=== PATIENT | male | born 1950 | race Hispanic/Latino ===

== ENCOUNTER → 2018-06-15 | Outpatient (CLI) | payer MEDICARE ==
[~2018-06-15] VITALS: Ht 180.3 cm; Wt 87.5 kg
[~2018-06-15] MED LIST: REGADENOSON 0.4 MG/5 ML PF SYG IVP SCH
== END | disposition home or self-care (01) ==
LOC: SHCH 07:42
PROVIDERS: ATTEND Internal Medicine Cardiovascular Disease
DX: R07.9 Chest pain, unspecified (principal)
CPT/HCPCS: 78452; 93017; 96374; A9500 ×2; J2785

== ENCOUNTER → 2019-11-28 | Outpatient (CLI) | payer MEDICARE | END | disposition home or self-care (01) | LOC: SHCH 08:26 | PROVIDERS: ATTEND Internal Medicine Cardiovascular Disease | DX: I08.3 Combined rheumatic disorders of mitral, aortic and tricuspid valves (principal); I10 Essential (primary) hypertension | CPT/HCPCS: 93306; 93356 ==

== ENCOUNTER → 2020-09-18 | Outpatient (CLI) | payer MEDICARE, OTHER ==
[~2020-09-18] MED LIST changes: +ALBUMIN (HUMAN) 25% 300 ML IV SCH; -REGADENOSON 0.4 MG/5 ML PF SYG IVP SCH
[2020-09-18 08:52] LABS: EOSINOPHILS % (AUTO) 1.2 % (0.0-8.0); HEMATOCRIT 42.9 % (42-54); LYMPHOCYTES % (AUTO) 11.5 % (21.0-51.0); MEAN CORPUSCULAR HEMOGLOBIN 29.5 pg (27.0-33.0); MEAN CORPUSCULAR VOLUME 95.1 fL (79-99); MONOCYTES % (AUTO) 13.9 % (3.0-13.0); NEUTROPHILS % (AUTO) 71.2 % (40.0-77.0); PLATELET COUNT (AUTO) 257 K/uL (130-400); RED BLOOD CELL COUNT(AUTO) 4.51 MIL/uL (4.50-6.20); RED CELL DISTRIBUTION WIDTH 16.4 % (11.0-15.5); WHITE BLOOD COUNT (AUTO) 4.1 K/uL (4.8-10.8)
[2020-09-18 09:16] LABS: BILIRUBIN,TOTAL 0.5 mg/dL (0.2-1.0); CREATININE 7.8 mg/dL (0.5-1.5); POTASSIUM 4.8 mmol/L (3.5-5.1); TOTAL PROTEIN, SERUM 7.5 g/dL (6.0-8.3)
[2020-09-18 09:48] LABS: INR 1.14 (0.85-1.15); PROTHROMBIN TIME 11.7 SEC (9.6-11.6)
[2020-09-18 13:29] LABS: ALBUMIN,BODY FLUID 2.4 g/dL
[2020-09-18 15:30] LABS: APPEARANCE BODY FLUID CLEAR (CLEAR); COLOR,BODY FLUID YELLOW (LT YELLOW); SPECIMENTYPE,BODY FLUID ASCITES; TOTAL VOLUME,BODY FLUID 14000 mL
[2020-09-18 15:31] LABS: BODY FLUID RBC 25 /cu. mm.; BODY FLUID WBC 43 /cu. mm.
[2020-09-18 16:11] LABS: BF LYMPHOCYTE 21 %; BF MESOTHELIAL 65 %
== END ==
LOC: RAH 08:32
PROVIDERS: ATTEND Internal Medicine Gastroenterology
DX: R18.8 Other ascites (principal)
CPT/HCPCS: 36415; 49083; 80053; 82042; 84157; 85025; 85610; 87071; 87205; 89051; A4215; P9046; 96365

== ENCOUNTER → 2020-09-23 | Outpatient (CLI) | payer MEDICARE | END | disposition home or self-care (01) | LOC: SHCH 15:10 | PROVIDERS: ATTEND Internal Medicine Cardiovascular Disease | DX: I50.22 Chronic systolic (congestive) heart failure (principal) | CPT/HCPCS: 93306; 93356 ==

== ENCOUNTER → 2020-10-05 | Outpatient (CLI) | payer MEDICARE ==
[2020-10-05 10:34] LABS: HEMATOCRIT 36.5 % (42-54); MEAN CORPUSCULAR HEMOGLOBIN 29.9 pg (27.0-33.0); MEAN CORPUSCULAR HGB CONC 31.2 g/dL (32.0-36.0); MEAN CORPUSCULAR VOLUME 95.8 fL (79-99); PLATELET COUNT (AUTO) 255 K/uL (130-400); RED BLOOD CELL COUNT(AUTO) 3.81 MIL/uL (4.50-6.20); RED CELL DISTRIBUTION WIDTH 15.9 % (11.0-15.5); WHITE BLOOD COUNT (AUTO) 5.6 K/uL (4.8-10.8)
[2020-10-05 10:52] LABS: ALBUMIN 2.3 g/dL (3.5-5.0); BILIRUBIN,TOTAL 0.4 mg/dL (0.2-1.0); TOTAL PROTEIN, SERUM 6.2 g/dL (6.0-8.3)
[2020-10-05 10:56] LABS: CREATININE 8.5 mg/dL (0.5-1.5); POTASSIUM 6.3 mmol/L (3.5-5.1)
[2020-10-05 11:02] LABS: INR 1.05 (0.85-1.15); PROTHROMBIN TIME 11.4 SEC (9.6-11.6)
[2020-10-05 11:15] LABS: BASOPHILS % (AUTO) 1.4 % (0.0-5.0); EOSINOPHILS % (AUTO) 2.2 % (0.0-8.0); LYMPHOCYTES % (AUTO) 8.4 % (21.0-51.0); NEUTROPHILS % (AUTO) 76.6 % (40.0-77.0)
[2020-10-05 13:15] LABS: APPEARANCE BODY FLUID CLEAR (CLEAR); COLOR,BODY FLUID YELLOW (LT YELLOW); SPECIMENTYPE,BODY FLUID ASCITES; TOTAL VOLUME,BODY FLUID 10100 mL
[2020-10-05 13:16] LABS: BODY FLUID RBC 124 /cu. mm.; BODY FLUID WBC 253 /cu. mm.
[2020-10-05 13:24] LABS: BF LYMPHOCYTE 17 %; BF MESOTHELIAL 76 %; BF MONOCYTE 7 %
[2020-10-05 14:03] LABS: ALBUMIN,BODY FLUID 1.7 g/dL
== END | disposition home or self-care (01) ==
LOC: RAH 10:05
PROVIDERS: ATTEND Internal Medicine Gastroenterology
DX: R18.8 Other ascites (principal); K74.69 Other cirrhosis of liver; E11.22 Type 2 diabetes mellitus with diabetic chronic kidney disease; I12.0 Hypertensive chronic kidney disease with stage 5 chronic kidney disease or end stage renal disease; N18.6 End stage renal disease; D64.9 Anemia, unspecified; M19.90 Unspecified osteoarthritis, unspecified site; K59.00 Constipation, unspecified; Z99.2 Dependence on renal dialysis; Z86.010 Personal history of colon polyps; Z79.01 Long term (current) use of anticoagulants; Z98.52 Vasectomy status; Z79.899 Other long term (current) drug therapy; Z98.890 Other specified postprocedural states
CPT/HCPCS: 36415; 49083; 80053; 82042; 84157; 85025; 85610; 87071; 87205; 89051; A4215; P9046; 96365

== ENCOUNTER → 2020-11-02 | Outpatient (CLI) | payer MEDICARE ==
[~2020-11-02] MED LIST changes: +ALBUMIN (HUMAN) 25% 100 ML IV SCH; +ALBUMIN (HUMAN) 25% 200 ML IV SCH; -ALBUMIN (HUMAN) 25% 300 ML IV SCH
[2020-11-02 13:17] LABS: APPEARANCE BODY FLUID CLEAR (CLEAR); BODY FLUID WBC 107 /cu. mm.; COLOR,BODY FLUID YELLOW (LT YELLOW); SPECIMENTYPE,BODY FLUID ASCITES; TOTAL VOLUME,BODY FLUID 11000 mL
[2020-11-02 13:18] LABS: BODY FLUID RBC 2675 /cu. mm.
[2020-11-02 13:26] LABS: BF BASOPHIL 1 %; BF LYMPHOCYTE 41 %; BF MESOTHELIAL 43 %; BF MONOCYTE 13 %
== END | disposition home or self-care (01) ==
LOC: RAH 10:35
PROVIDERS: ATTEND Internal Medicine Gastroenterology
DX: R18.8 Other ascites (principal); K74.69 Other cirrhosis of liver; E11.22 Type 2 diabetes mellitus with diabetic chronic kidney disease; I12.9 Hypertensive chronic kidney disease with stage 1 through stage 4 chronic kidney disease, or unspecified chronic kidney disease; N18.6 End stage renal disease; D64.9 Anemia, unspecified; M19.90 Unspecified osteoarthritis, unspecified site; K59.00 Constipation, unspecified; Z99.2 Dependence on renal dialysis; Z79.01 Long term (current) use of anticoagulants; Z86.010 Personal history of colon polyps; Z98.52 Vasectomy status; Z79.899 Other long term (current) drug therapy; Z98.890 Other specified postprocedural states
CPT/HCPCS: 49083; 87071; 87205; 89051; A4215; P9046 ×2; 96365

== ENCOUNTER → 2020-11-27 | Outpatient (CLI) | payer MEDICARE ==
[2020-11-27 09:08] LABS: HEMATOCRIT 28.5 % (42-54); MEAN CORPUSCULAR HEMOGLOBIN 30.1 pg (27.0-33.0); MEAN CORPUSCULAR HGB CONC 30.5 g/dL (32.0-36.0); MEAN CORPUSCULAR VOLUME 98.6 fL (79-99); PLATELET COUNT (AUTO) 368 K/uL (130-400); RED BLOOD CELL COUNT(AUTO) 2.89 MIL/uL (4.50-6.20); RED CELL DISTRIBUTION WIDTH 14.9 % (11.0-15.5); WHITE BLOOD COUNT (AUTO) 6.1 K/uL (4.8-10.8)
[2020-11-27 09:22] LABS: INR 1.08 (0.85-1.15); PROTHROMBIN TIME 11.7 SEC (9.6-11.6)
[2020-11-27 09:33] LABS: ALBUMIN 2.3 g/dL (3.5-5.0); BILIRUBIN,TOTAL 0.3 mg/dL (0.2-1.0); CREATININE 5.4 mg/dL (0.5-1.5); TOTAL PROTEIN, SERUM 6.7 g/dL (6.0-8.3)
[2020-11-27 09:35] LABS: EOSINOPHILS % (MANUAL) 6 % (1-6); LYMPHOCYTES % (MANUAL) 9 % (22-44); MONOCYTES % (MANUAL) 9 % (2-9); SEGMENTED NEUTROPHILS % 76 % (40-70)
[2020-11-27 09:39] LABS: MAN.DIFF COMMENT-IMPRESSION MANUAL DIFFERENTIAL; PLATELET MORPHOLOGY COMMENT ADEQUATE
[2020-11-27] MEDS: ALBUMIN (HUMAN) 25% 200 ML IV SCH ×2 (11:37→14:15)
[2020-11-27 13:12] LABS: APPEARANCE BODY FLUID CLEAR (CLEAR); BODY FLUID WBC 165 /cu. mm.; COLOR,BODY FLUID DARK YELLOW (LT YELLOW); SPECIMENTYPE,BODY FLUID ASCITES; TOTAL VOLUME,BODY FLUID 3400 mL
[2020-11-27 13:13] LABS: BODY FLUID RBC 5200 /cu. mm.
[2020-11-27 13:22] LABS: BF EOSINOPHIL 6 %; BF LYMPHOCYTE 42 %; BF MESOTHELIAL 44 %
== END ==
LOC: RAH 07:33
PROVIDERS: ATTEND Internal Medicine Gastroenterology
DX: R18.8 Other ascites (principal)
CPT/HCPCS: 36415; 49083; 80053; 85025; 85610; 87071; 87205; 89051; A4215; P9046

== ENCOUNTER → 2020-12-18 | Outpatient (CLI) | payer MEDICARE ==
[~2020-12-18] MED LIST changes: -ALBUMIN (HUMAN) 25% 100 ML IV SCH
[2020-12-18 13:37] LABS: APPEARANCE BODY FLUID CLOUDY (CLEAR); BODY FLUID WBC 324 /cu. mm.; COLOR,BODY FLUID DARK YELLOW (LT YELLOW); SPECIMENTYPE,BODY FLUID ASCITES; TOTAL VOLUME,BODY FLUID 3600 mL
[2020-12-18 13:38] LABS: BODY FLUID RBC 2600 /cu. mm.
[2020-12-18 14:03] LABS: BF LYMPHOCYTE 19 %; BF MESOTHELIAL 74 %; BF MONOCYTE 7 %
== END | disposition home or self-care (01) ==
LOC: RAH 07:58
PROVIDERS: ATTEND Internal Medicine Gastroenterology
DX: R18.8 Other ascites (principal); K74.69 Other cirrhosis of liver; E11.22 Type 2 diabetes mellitus with diabetic chronic kidney disease; I12.0 Hypertensive chronic kidney disease with stage 5 chronic kidney disease or end stage renal disease; N18.6 End stage renal disease; M19.90 Unspecified osteoarthritis, unspecified site; D64.9 Anemia, unspecified; Z99.2 Dependence on renal dialysis; Z98.52 Vasectomy status; Z86.010 Personal history of colon polyps; Z79.01 Long term (current) use of anticoagulants
CPT/HCPCS: 49083; 87071; 87205; 89051; C1729; P9046

== ENCOUNTER → 2021-01-08 | Outpatient (CLI) | payer MEDICARE ==
[2021-01-08 09:43] LABS: BASOPHILS % (AUTO) 0.6 % (0.0-5.0); EOSINOPHILS % (AUTO) 1.2 % (0.0-8.0); HEMATOCRIT 22.6 % (42-54); LYMPHOCYTES % (AUTO) 9.3 % (21.0-51.0); MEAN CORPUSCULAR HEMOGLOBIN 30.2 pg (27.0-33.0); MEAN CORPUSCULAR VOLUME 97.4 fL (79-99); MONOCYTES % (AUTO) 12.8 % (3.0-13.0); NEUTROPHILS % (AUTO) 75.6 % (40.0-77.0); PLATELET COUNT (AUTO) 336 K/uL (130-400); RED BLOOD CELL COUNT(AUTO) 2.32 MIL/uL (4.50-6.20); RED CELL DISTRIBUTION WIDTH 13.2 % (11.0-15.5); WHITE BLOOD COUNT (AUTO) 6.6 K/uL (4.8-10.8)
[2021-01-08 09:54] LABS: INR 1.16 (0.85-1.15); PROTHROMBIN TIME 12.5 SEC (9.6-11.6)
[2021-01-08 09:56] LABS: ALBUMIN 2.3 g/dL (3.5-5.0); BILIRUBIN,TOTAL 0.3 mg/dL (0.2-1.0); POTASSIUM 4.7 mmol/L (3.5-5.1); TOTAL PROTEIN, SERUM 6.6 g/dL (6.0-8.3)
== END | disposition home or self-care (01) ==
LOC: RAH 09:13
PROVIDERS: ATTEND Internal Medicine Gastroenterology
DX: R18.8 Other ascites (principal); E78.5 Hyperlipidemia, unspecified; K74.69 Other cirrhosis of liver; K22.70 Barrett's esophagus without dysplasia; R11.2 Nausea with vomiting, unspecified; R19.4 Change in bowel habit; K57.30 Diverticulosis of large intestine without perforation or abscess without bleeding; D64.9 Anemia, unspecified; N18.6 End stage renal disease; E11.9 Type 2 diabetes mellitus without complications; Z86.010 Personal history of colon polyps; Z79.899 Other long term (current) drug therapy
CPT/HCPCS: 36415; 76705; 80053; 85025; 85610; 85730

== ENCOUNTER → 2021-02-17 | Outpatient (CLI) | payer MEDICARE ==
[~2021-02-17] MED LIST changes: +CLOP75TA32 PO; +CYAN25002 SL; +FERR-72 PO; +FOLI0.8T3 PO; +METO50TA18 PO; +METO5TAB2 PO; +MULT-1204 PO; +PANT40TA55 PO; +SIMV-43 PO; +SODI10PO2 PO
[2021-02-17 08:43] LABS: EOSINOPHILS % (AUTO) 1.4 % (0.0-8.0); HEMATOCRIT 25.8 % (42-54); LYMPHOCYTES % (AUTO) 6.6 % (21.0-51.0); MEAN CORPUSCULAR HEMOGLOBIN 27.1 pg (27.0-33.0); MEAN CORPUSCULAR HGB CONC 30.2 g/dL (32.0-36.0); MEAN CORPUSCULAR VOLUME 89.6 fL (79-99); NEUTROPHILS % (AUTO) 79.4 % (40.0-77.0); PLATELET COUNT (AUTO) 446 K/uL (130-400); RED BLOOD CELL COUNT(AUTO) 2.88 MIL/uL (4.50-6.20); RED CELL DISTRIBUTION WIDTH 14.8 % (11.0-15.5); WHITE BLOOD COUNT (AUTO) 7.1 K/uL (4.8-10.8)
[2021-02-17 08:54] LABS: INR 1.21 (0.85-1.15)
[2021-02-17 08:57] LABS: ALBUMIN 2.4 g/dL (3.5-5.0); BILIRUBIN,TOTAL 0.3 mg/dL (0.2-1.0); CREATININE 6.3 mg/dL (0.5-1.5); POTASSIUM 4.6 mmol/L (3.5-5.1); TOTAL PROTEIN, SERUM 7.1 g/dL (6.0-8.3)
[2021-02-17 14:29] LABS: APPEARANCE BODY FLUID TURBID (CLEAR); BODY FLUID WBC 313 /cu. mm.; COLOR,BODY FLUID RED (LT YELLOW); SPECIMENTYPE,BODY FLUID ASCITES; TOTAL VOLUME,BODY FLUID 900 mL
[2021-02-17 14:30] LABS: BODY FLUID RBC 44000 /cu. mm.
[2021-02-17 14:33] LABS: BF LYMPHOCYTE 5 %; BF MESOTHELIAL 3 %; BF MONOCYTE 7 %
== END ==
LOC: RAH 08:08
PROVIDERS: ATTEND Internal Medicine Gastroenterology
DX: R18.8 Other ascites (principal); E11.22 Type 2 diabetes mellitus with diabetic chronic kidney disease; I12.9 Hypertensive chronic kidney disease with stage 1 through stage 4 chronic kidney disease, or unspecified chronic kidney disease; N18.6 End stage renal disease; Z98.52 Vasectomy status
CPT/HCPCS: 36415; 49083; 80053; 85025; 85610; 87071; 87205; 88112; 88305; 89051; C1729; P9046

== ENCOUNTER 2021-02-19 16:54 | Inpatient (IN) | payer MEDICARE ==
[~2021-02-19] VITALS: Ht 180.3 cm; Wt 74.2 kg
[2021-02-19 17:37] LABS: EOSINOPHILS % (AUTO) 1.8 % (0.0-8.0); HEMATOCRIT 25.9 % (42-54); LYMPHOCYTES % (AUTO) 8.3 % (21.0-51.0); MEAN CORPUSCULAR HEMOGLOBIN 26.4 pg (27.0-33.0); MEAN CORPUSCULAR HGB CONC 30.1 g/dL (32.0-36.0); MEAN CORPUSCULAR VOLUME 87.8 fL (79-99); MONOCYTES % (AUTO) 11.4 % (3.0-13.0); NEUTROPHILS % (AUTO) 76.8 % (40.0-77.0); PLATELET COUNT (AUTO) 444 K/uL (130-400); RED BLOOD CELL COUNT(AUTO) 2.95 MIL/uL (4.50-6.20); RED CELL DISTRIBUTION WIDTH 14.8 % (11.0-15.5); WHITE BLOOD COUNT (AUTO) 7.4 K/uL (4.8-10.8)
[2021-02-19 17:51] LABS: CREATININE 7.1 mg/dL (0.5-1.5); POTASSIUM 4.8 mmol/L (3.5-5.1)
[2021-02-19 17:54] LABS: INR 1.15 (0.85-1.15); PROTHROMBIN TIME 12.4 SEC (9.6-11.6)
[2021-02-19 17:55] LABS: ALBUMIN 2.5 g/dL (3.5-5.0); BILIRUBIN,TOTAL 0.3 mg/dL (0.2-1.0); PARTIAL THROMBOPLASTIN TIME 34.7 SEC (26.3-35.5); TOTAL PROTEIN, SERUM 7.3 g/dL (6.0-8.3)
[2021-02-19] MEDS ORDERED: GUAIFENESIN-DM 200/20 MG 10 ML PO PRN (19:00)
[2021-02-19] MEDS ORDERED: MORPHINE 2 MG SYG IV PRN (19:00)
[2021-02-19] MEDS ORDERED: ACETAMINOPHEN 325 MG TAB PO PRN ×2 (19:00)
[2021-02-19] MEDS ORDERED: MAG/ALUM/SIMETH 30 ML UDCUP PO PRN (19:00)
[2021-02-19] MEDS ORDERED: NITROGLYCERIN 0.4 MG SL TAB SL PRN (19:00)
[2021-02-19] MEDS ORDERED: ZOLPIDEM TARTRATE 5 MG TAB PO PRN (19:00)
[2021-02-19] MEDS ORDERED: LACTULOSE 20 GM/30 ML UDCUP PO PRN (19:00)
[2021-02-19] MEDS ORDERED: ONDANSETRON 4MG INJ IV PRN (19:00)
[2021-02-19] MEDS ORDERED: MULT-1204 PO (21:51)
[2021-02-19] MEDS ORDERED: FERR-72 PO (21:51)
[2021-02-19] MEDS ORDERED: SIMV-43 PO (21:51)
[2021-02-19] MEDS ORDERED: FOLI0.8T3 PO (21:51)
[2021-02-19] MEDS ORDERED: METO50TA18 PO (21:51)
[2021-02-19] MEDS ORDERED: CYAN25002 SL (21:51)
[2021-02-19] MEDS ORDERED: SODI10PO2 PO (21:51)
[2021-02-19] MEDS ORDERED: PANT40TA55 PO (21:51)
[2021-02-19] MEDS ORDERED: METO5TAB2 PO (21:51)
[2021-02-19] MEDS ORDERED: CLOP75TA32 PO (21:51)
[2021-02-20] VITALS (17 sets, daily range): BP systolic 149–168; BP diastolic 56–75
[2021-02-20] MEDS ORDERED: LEVOFLOXACIN 500 MG/D5W 100 ML 100 ML IV SCH (05:00)
[2021-02-20] MEDS ORDERED: METRONIDAZOLE 500MG/100ML BAG 100 ML ONE (05:07)
[2021-02-20] MEDS ORDERED: LEVOFLOXACIN 500 MG/D5W 100 ML 100 ML ONE (05:07)
[2021-02-20] MEDS: CYANOCOBALAMIN (VITAMIN B-12) 1,000 MCG TABLET PO SCH (09:03)
[2021-02-20] MEDS: METOPROLOL TARTRATE 50 MG TAB PO SCH (09:03)
[2021-02-20] MEDS: ENOXAPARIN SODIUM 30 MG/0.3 ML SQ SCH (09:03)
[2021-02-20] MEDS: FAMOTIDINE 20MG VIAL IV SCH (09:03)
[2021-02-20] MEDS: FERROUS SULFATE 325 MG TABLET.DR PO SCH (09:03)
[2021-02-20 10:19] LABS: HEMATOCRIT 24.1 % (42-54); MEAN CORPUSCULAR HEMOGLOBIN 26.4 pg (27.0-33.0); MEAN CORPUSCULAR HGB CONC 30.3 g/dL (32.0-36.0); PLATELET COUNT (AUTO) 421 K/uL (130-400); RED BLOOD CELL COUNT(AUTO) 2.77 MIL/uL (4.50-6.20)
[2021-02-20 10:57] LABS: ALBUMIN 2.2 g/dL (3.5-5.0); BILIRUBIN,TOTAL 0.4 mg/dL (0.2-1.0); CREATININE 7.3 mg/dL (0.5-1.5); POTASSIUM 5.5 mmol/L (3.5-5.1); TOTAL PROTEIN, SERUM 6.5 g/dL (6.0-8.3)
[2021-02-20 11:44] LABS: BASOPHILS % (MANUAL) 1 % (0-2); LYMPHOCYTES % (MANUAL) 4 % (22-44); MONOCYTES % (MANUAL) 5 % (2-9); SEGMENTED NEUTROPHILS % 90 % (40-70)
[2021-02-20 11:45] LABS: MAN.DIFF COMMENT-IMPRESSION MANUAL DIFFERENTIAL; PLATELET MORPHOLOGY COMMENT MARKED INCREASE
[2021-02-20] MEDS ORDERED: VANCOMYCIN PROTOCOL PER PHARMACY IV SCH (13:00)
[2021-02-20] MEDS ORDERED: VANCOMYCIN 1G VIAL IVPB ONE (13:00)
[2021-02-20] MEDS ORDERED: ZOSYN 3.375GM+NS 50ML 3.38 GM in 0.9%NACL 50ML 50 ML IV SCH (13:00)
[2021-02-20] MEDS ORDERED: COMPOUND IV REFRIGERATED 1 EACH IVSOLN MISC PRN (13:30)
[2021-02-20] MEDS ORDERED: METRONIDAZOLE 500MG/100ML BAG 100 ML IVPB SCH (14:00)
[2021-02-20] MEDS ORDERED: VANCOMYCIN 1.5GM/NS 250ML IV ONE ×2 (14:00)
[2021-02-20] MEDS: ZOSYN 3.375GM +NS 50ML IV SCH (16:42)
[2021-02-20] MEDS: 0.9%NACL 50ML 50 ML IV SCH (16:42)
[2021-02-20] MEDS ORDERED: SIMVASTATIN 20 MG TABLET ONE (19:01)
[2021-02-20] MEDS: SIMVASTATIN 20 MG TABLET PO SCH (19:25)
[2021-02-20] MEDS: FLUCONAZOLE 400 MG/NS 200 ML 200 ML IV SCH (20:54)
[2021-02-21 03:28] VITALS: BP 161/74
[2021-02-21] MEDS: ZOSYN 3.375GM +NS 50ML IV SCH ×2 (04:12→15:54)
[2021-02-21] MEDS: 0.9%NACL 50ML 50 ML IV SCH ×2 (04:12→16:00)
[2021-02-21 05:40] LABS: HEMATOCRIT 26.4 % (42-54); MEAN CORPUSCULAR HEMOGLOBIN 26.4 pg (27.0-33.0); MEAN CORPUSCULAR HGB CONC 29.9 g/dL (32.0-36.0); MEAN CORPUSCULAR VOLUME 88.3 fL (79-99); RED BLOOD CELL COUNT(AUTO) 2.99 MIL/uL (4.50-6.20); RED CELL DISTRIBUTION WIDTH 15.1 % (11.0-15.5); WHITE BLOOD COUNT (AUTO) 7.5 K/uL (4.8-10.8)
[2021-02-21 05:49] LABS: ALBUMIN 2.4 g/dL (3.5-5.0); BILIRUBIN,TOTAL 0.3 mg/dL (0.2-1.0); CREATININE 6.2 mg/dL (0.5-1.5); POTASSIUM 4.8 mmol/L (3.5-5.1)
[2021-02-21 06:00] LABS: INR 1.18 (0.85-1.15); PROTHROMBIN TIME 12.7 SEC (9.6-11.6)
[2021-02-21 06:02] LABS: PARTIAL THROMBOPLASTIN TIME 36.9 SEC (26.3-35.5)
[2021-02-21 08:00] VITALS: BP 124/51
[2021-02-21] MEDS: METOPROLOL TARTRATE 50 MG TAB PO SCH (09:48)
[2021-02-21] MEDS: FERROUS SULFATE 325 MG TABLET.DR PO SCH (09:48)
[2021-02-21] MEDS: FAMOTIDINE 20MG VIAL IV SCH (09:48)
[2021-02-21] MEDS: CYANOCOBALAMIN (VITAMIN B-12) 1,000 MCG TABLET PO SCH (09:48)
[2021-02-21] MEDS: ENOXAPARIN SODIUM 30 MG/0.3 ML SQ SCH (09:50)
[2021-02-21 12:00] VITALS: BP 119/56
[2021-02-21] MEDS: 0.9% NACL 250ML 250 ML IV SCH (14:00)
[2021-02-21] MEDS: ALBUMIN (HUMAN) 25% 200 ML IV SCH (15:00)
[2021-02-21 16:00] VITALS: BP 145/56
[2021-02-21 19:09] LABS: HEPATITIS Bs ANTIGEN SCREEN P Negative (Negative)
[2021-02-21] MEDS: SIMVASTATIN 20 MG TABLET PO SCH (19:14)
[2021-02-21 23:51] VITALS: BP 151/44
[2021-02-22] VITALS (13 sets, daily range): BP systolic 146–172; BP diastolic 63–86
[2021-02-22] MEDS: 0.9%NACL 50ML 50 ML IV SCH ×2 (03:51→16:02)
[2021-02-22] MEDS: ZOSYN 3.375GM +NS 50ML IV SCH ×2 (03:51→16:02)
[2021-02-22 04:07] LABS: HEMATOCRIT 25.1 % (42-54); MEAN CORPUSCULAR HEMOGLOBIN 26.8 pg (27.0-33.0); MEAN CORPUSCULAR HGB CONC 30.7 g/dL (32.0-36.0); MEAN CORPUSCULAR VOLUME 87.5 fL (79-99); RED BLOOD CELL COUNT(AUTO) 2.87 MIL/uL (4.50-6.20); RED CELL DISTRIBUTION WIDTH 14.9 % (11.0-15.5); WHITE BLOOD COUNT (AUTO) 6.3 K/uL (4.8-10.8)
[2021-02-22 04:20] LABS: INR 1.15 (0.85-1.15); PROTHROMBIN TIME 12.4 SEC (9.6-11.6)
[2021-02-22 04:21] LABS: PARTIAL THROMBOPLASTIN TIME 34.8 SEC (26.3-35.5)
[2021-02-22 04:25] LABS: CREATININE 7.8 mg/dL (0.5-1.5); POTASSIUM 5.2 mmol/L (3.5-5.1)
[2021-02-22] MEDS ORDERED: LEVOFLOXACIN 250 MG/D5W 50ML 50 ML IVPB SCH (06:00)
[2021-02-22] MEDS: ENOXAPARIN SODIUM 30 MG/0.3 ML SQ SCH (08:57)
[2021-02-22] MEDS: NA ZIRCON CYCLOSIL(LOKELMA 10GM) PO SCH (09:50)
[2021-02-22] MEDS: FAMOTIDINE 20MG VIAL IV SCH (09:50)
[2021-02-22] MEDS: ALBUMIN (HUMAN) 25% 100 ML IV SCH ×2 (13:00→13:43)
[2021-02-22] MEDS: FERROUS SULFATE 325 MG TABLET.DR PO SCH (13:26)
[2021-02-22] MEDS: METOPROLOL TARTRATE 50 MG TAB PO SCH (13:26)
[2021-02-22] MEDS: CYANOCOBALAMIN (VITAMIN B-12) 1,000 MCG TABLET PO SCH (13:26)
[2021-02-22] MEDS: ALBUMIN (HUMAN) 25% 200 ML IV SCH (14:00)
[2021-02-22 15:46] LABS: ALBUMIN,BODY FLUID 1.9 g/dL
[2021-02-22 16:57] LABS: SPECIMENTYPE,BODY FLUID ASCITES
[2021-02-22 16:58] LABS: APPEARANCE BODY FLUID BLOODY (CLEAR); BODY FLUID WBC 54 /cu. mm.; COLOR,BODY FLUID RED (LT YELLOW); TOTAL VOLUME,BODY FLUID 950 mL
[2021-02-22 16:59] LABS: BODY FLUID RBC 111400 /cu. mm.
[2021-02-22 17:04] LABS: BF LYMPHOCYTE 3 %
[2021-02-22] MEDS: FLUCONAZOLE 400 MG/NS 200 ML 200 ML IV SCH (21:43)
[2021-02-22] MEDS: SIMVASTATIN 20 MG TABLET PO SCH (21:43)
[2021-02-23] VITALS (20 sets, daily range): BP systolic 130–172; BP diastolic 39–80
[2021-02-23] MEDS: ZOSYN 3.375GM +NS 50ML IV SCH ×2 (03:24→16:30)
[2021-02-23] MEDS: 0.9%NACL 50ML 50 ML IV SCH ×2 (03:24→16:31)
[2021-02-23 06:56] LABS: MEAN CORPUSCULAR HEMOGLOBIN 26.9 pg (27.0-33.0); MEAN CORPUSCULAR HGB CONC 30.8 g/dL (32.0-36.0); MEAN CORPUSCULAR VOLUME 87.4 fL (79-99); RED BLOOD CELL COUNT(AUTO) 2.86 MIL/uL (4.50-6.20); RED CELL DISTRIBUTION WIDTH 14.9 % (11.0-15.5); WHITE BLOOD COUNT (AUTO) 6.9 K/uL (4.8-10.8)
[2021-02-23 07:04] LABS: POTASSIUM 5.2 mmol/L (3.5-5.1)
[2021-02-23] MEDS: 0.9%NACL 1000ML 1,000 ML IV PRN (09:56)
[2021-02-23] MEDS: EPOETIN ALFA-EPBX (ESRD) 10,000 UNIT/ML VIAL SQ SCH (13:05)
[2021-02-23] MEDS: FAMOTIDINE 20MG VIAL IV SCH (13:08)
[2021-02-23] MEDS: CYANOCOBALAMIN (VITAMIN B-12) 1,000 MCG TABLET PO SCH (13:09)
[2021-02-23] MEDS: FERROUS SULFATE 325 MG TABLET.DR PO SCH (13:09)
[2021-02-23] MEDS: ENOXAPARIN SODIUM 30 MG/0.3 ML SQ SCH (13:13)
[2021-02-23] MEDS: METOPROLOL TARTRATE 50 MG TAB PO SCH (13:15)
[2021-02-23] MEDS: NA ZIRCON CYCLOSIL(LOKELMA 10GM) PO SCH (13:30)
[2021-02-23] MEDS ORDERED: VANCOMYCIN KIT 1 GM/250 ML IV.KIT IV SCH (14:00)
[2021-02-23] MEDS: SIMVASTATIN 20 MG TABLET PO SCH (20:56)
[2021-02-24 03:41] VITALS: BP 147/68
[2021-02-24] MEDS: 0.9%NACL 50ML 50 ML IV SCH ×2 (03:43→17:59)
[2021-02-24] MEDS: ZOSYN 3.375GM +NS 50ML IV SCH ×2 (03:43→16:46)
[2021-02-24 05:01] LABS: HEMATOCRIT 26.7 % (42-54); MEAN CORPUSCULAR HEMOGLOBIN 26.8 pg (27.0-33.0); MEAN CORPUSCULAR HGB CONC 30.7 g/dL (32.0-36.0); MEAN CORPUSCULAR VOLUME 87.3 fL (79-99); RED BLOOD CELL COUNT(AUTO) 3.06 MIL/uL (4.50-6.20); RED CELL DISTRIBUTION WIDTH 14.8 % (11.0-15.5); WHITE BLOOD COUNT (AUTO) 5.8 K/uL (4.8-10.8)
[2021-02-24 05:21] LABS: ALBUMIN 2.6 g/dL (3.5-5.0); BILIRUBIN,TOTAL 0.4 mg/dL (0.2-1.0); CREATININE 6.2 mg/dL (0.5-1.5); POTASSIUM 4.3 mmol/L (3.5-5.1)
[2021-02-24 08:00] VITALS: BP 142/59
[2021-02-24] MEDS: CYANOCOBALAMIN (VITAMIN B-12) 1,000 MCG TABLET PO SCH (10:26)
[2021-02-24] MEDS: FERROUS SULFATE 325 MG TABLET.DR PO SCH (10:26)
[2021-02-24] MEDS: METOPROLOL TARTRATE 50 MG TAB PO SCH (10:26)
[2021-02-24] MEDS: FAMOTIDINE 20MG VIAL IV SCH (10:28)
[2021-02-24] MEDS: ENOXAPARIN SODIUM 30 MG/0.3 ML SQ SCH (10:32)
[2021-02-24 11:48] VITALS: BP 148/71
[2021-02-24] MEDS ORDERED: ALBUMIN (HUMAN) 25% 100 ML IV SCH (13:00)
[2021-02-24] MEDS: NA ZIRCON CYCLOSIL(LOKELMA 10GM) PO SCH (13:28)
[2021-02-24] MEDS: 0.9% NACL 250ML 250 ML IV SCH (14:00)
[2021-02-24 16:00] VITALS: BP 153/89
[2021-02-24] MEDS: INSULIN HUMULIN R 100 UNIT/ML 3ML SQ SCH ×2 (16:30→20:49)
[2021-02-24 20:00] VITALS: BP 149/69
[2021-02-24] MEDS: FLUCONAZOLE 400 MG/NS 200 ML 200 ML IV SCH (21:56)
[2021-02-24] MEDS: SIMVASTATIN 20 MG TABLET PO SCH (21:56)
[2021-02-25] VITALS (21 sets, daily range): BP systolic 136–182; BP diastolic 60–84
[2021-02-25] MEDS: ZOSYN 3.375GM +NS 50ML IV SCH ×2 (03:49→16:44)
[2021-02-25] MEDS: 0.9%NACL 50ML 50 ML IV SCH ×2 (03:49→16:45)
[2021-02-25 05:08] LABS: HEMATOCRIT 27.6 % (42-54); MEAN CORPUSCULAR HEMOGLOBIN 26.5 pg (27.0-33.0); MEAN CORPUSCULAR HGB CONC 30.4 g/dL (32.0-36.0); MEAN CORPUSCULAR VOLUME 87.1 fL (79-99); RED BLOOD CELL COUNT(AUTO) 3.17 MIL/uL (4.50-6.20); RED CELL DISTRIBUTION WIDTH 14.6 % (11.0-15.5); WHITE BLOOD COUNT (AUTO) 6.2 K/uL (4.8-10.8)
[2021-02-25 05:25] LABS: CREATININE 7.7 mg/dL (0.5-1.5); POTASSIUM 4.9 mmol/L (3.5-5.1); VANCOMYCIN LEVEL 20.9 mcg/mL (18.0-26.0)
[2021-02-25] MEDS: INSULIN HUMULIN R 100 UNIT/ML 3ML SQ SCH ×4 (06:26→21:00)
[2021-02-25] MEDS: NA ZIRCON CYCLOSIL(LOKELMA 10GM) PO SCH (09:00)
[2021-02-25] MEDS: 0.9%NACL 1000ML 1,000 ML IV PRN (10:23)
[2021-02-25] MEDS: FAMOTIDINE 20MG VIAL IV SCH (16:34)
[2021-02-25] MEDS: FERROUS SULFATE 325 MG TABLET.DR PO SCH (16:36)
[2021-02-25] MEDS: METOPROLOL TARTRATE 50 MG TAB PO SCH (16:36)
[2021-02-25] MEDS: ENOXAPARIN SODIUM 30 MG/0.3 ML SQ SCH (16:44)
[2021-02-25] MEDS: CYANOCOBALAMIN (VITAMIN B-12) 1,000 MCG TABLET PO SCH (16:44)
[2021-02-25] MEDS: EPOETIN ALFA-EPBX (ESRD) 10,000 UNIT/ML VIAL SQ SCH (16:49)
[2021-02-25] MEDS: SIMVASTATIN 20 MG TABLET PO SCH (21:06)
[2021-02-26] VITALS: BP 135/66
[2021-02-26 04:00] VITALS: BP 140/67
[2021-02-26] MEDS: 0.9%NACL 50ML 50 ML IV SCH ×2 (04:00→17:05)
[2021-02-26 05:02] LABS: HEMATOCRIT 27.9 % (42-54); MEAN CORPUSCULAR HEMOGLOBIN 26.2 pg (27.0-33.0); MEAN CORPUSCULAR HGB CONC 30.1 g/dL (32.0-36.0); MEAN CORPUSCULAR VOLUME 86.9 fL (79-99); RED BLOOD CELL COUNT(AUTO) 3.21 MIL/uL (4.50-6.20); RED CELL DISTRIBUTION WIDTH 14.6 % (11.0-15.5); WHITE BLOOD COUNT (AUTO) 6.2 K/uL (4.8-10.8)
[2021-02-26 05:14] LABS: CREATININE 6.1 mg/dL (0.5-1.5); POTASSIUM 4.7 mmol/L (3.5-5.1)
[2021-02-26] MEDS: ZOSYN 3.375GM +NS 50ML IV SCH ×2 (06:21→17:05)
[2021-02-26] MEDS: INSULIN HUMULIN R 100 UNIT/ML 3ML SQ SCH ×3 (06:22→16:30)
[2021-02-26 08:07] VITALS: BP 149/66
[2021-02-26] MEDS: NA ZIRCON CYCLOSIL(LOKELMA 10GM) PO SCH (09:00)
[2021-02-26] MEDS: CYANOCOBALAMIN (VITAMIN B-12) 1,000 MCG TABLET PO SCH (10:15)
[2021-02-26] MEDS: METOPROLOL TARTRATE 50 MG TAB PO SCH (10:15)
[2021-02-26] MEDS: FERROUS SULFATE 325 MG TABLET.DR PO SCH (10:15)
[2021-02-26] MEDS: FAMOTIDINE 20MG VIAL IV SCH (10:15)
[2021-02-26] MEDS: ENOXAPARIN SODIUM 30 MG/0.3 ML SQ SCH (10:16)
[2021-02-26 11:20] VITALS: BP 143/63
[2021-02-26 16:36] VITALS: BP 141/59
== END 2021-02-26 19:03 | DRG 432 ==
LOC: EDH 16:54 → EDHIP 18:34 → OBSVTOIN 18:34 → 4AH 02-20 13:35 → 3BH 02-23 00:19
PROVIDERS: ADMIT Internal Medicine; ATTEND Internal Medicine
PROC: 5A1D70Z Performance of Urinary Filtration, Intermittent, Less than 6 Hours Per Day (ICD-10-PCS; 2021-02-20)
PROC: 0W9G3ZZ Drainage of Peritoneal Cavity, Percutaneous Approach (ICD-10-PCS; principal; 2021-02-22)
PROC: 5A1D70Z Performance of Urinary Filtration, Intermittent, Less than 6 Hours Per Day (ICD-10-PCS; 2021-02-23)
PROC: 5A1D70Z Performance of Urinary Filtration, Intermittent, Less than 6 Hours Per Day (ICD-10-PCS; 2021-02-25)
DX: K74.60 Unspecified cirrhosis of liver (principal); N18.6 End stage renal disease; K65.2 Spontaneous bacterial peritonitis; K65.1 Peritoneal abscess; R18.8 Other ascites; R78.81 Bacteremia; I12.0 Hypertensive chronic kidney disease with stage 5 chronic kidney disease or end stage renal disease; E11.22 Type 2 diabetes mellitus with diabetic chronic kidney disease; M19.90 Unspecified osteoarthritis, unspecified site; D64.9 Anemia, unspecified; E78.5 Hyperlipidemia, unspecified; N40.0 Benign prostatic hyperplasia without lower urinary tract symptoms; J44.9 Chronic obstructive pulmonary disease, unspecified; E87.5 Hyperkalemia; B96.89 Other specified bacterial agents as the cause of diseases classified elsewhere; Z99.2 Dependence on renal dialysis; Z87.19 Personal history of other diseases of the digestive system; Z83.3 Family history of diabetes mellitus
CPT/HCPCS: 36415; 49083; 71045; 74176; 80048; 80053; 80202; 82040; 82042; 82140; 82378; 82948; 83690; 83735; 84132; 84145; 84157; 85025; 85027; 85610; 85730; 86316; 86704; 86706; 86850; 86900; 86901; 87040; 87071; 87205; 87340; 88112; 88305; 89051; 90935; 96365; C1729; G0378; J1450; J1650; J1956; J2543; J3370; J3490; J7050; P9046

== ENCOUNTER 2021-03-29 20:22 | Inpatient (IN) | payer MEDICARE ==
[~2021-03-29] VITALS: Ht 180.3 cm; Wt 75.2 kg
[~2021-03-29 20:22] MED LIST changes: -ALBUMIN (HUMAN) 25% 200 ML IV SCH; +VANCOMYCIN 1G/250ML KIT 250 ML IV ONE
[2021-03-29 20:59] LABS: BASOPHILS % (AUTO) 0.2 % (0.0-5.0); EOSINOPHILS % (AUTO) 0.2 % (0.0-8.0); HEMATOCRIT 32.4 % (42-54); MEAN CORPUSCULAR HEMOGLOBIN 25.6 pg (27.0-33.0); MEAN CORPUSCULAR HGB CONC 31.2 g/dL (32.0-36.0); MEAN CORPUSCULAR VOLUME 82.2 fL (79-99); MONOCYTES % (AUTO) 0.3 % (3.0-13.0); NEUTROPHILS % (AUTO) 96.6 % (40.0-77.0); PLATELET COUNT (AUTO) 342 K/uL (130-400); RED BLOOD CELL COUNT(AUTO) 3.94 MIL/uL (4.50-6.20); RED CELL DISTRIBUTION WIDTH 16.4 % (11.0-15.5); WHITE BLOOD COUNT (AUTO) 9.4 K/uL (4.8-10.8)
[2021-03-29] MEDS ORDERED: ONDANSETRON 4MG INJ ONE (21:24)
[2021-03-29] MEDS ORDERED: ACETAMINOPHEN 500 MG TABLET ONE (21:24)
[2021-03-29] MEDS ORDERED: ACETAMINOPHEN 500 MG TABLET PO ONE (21:30)
[2021-03-29] MEDS ORDERED: ONDANSETRON 4MG INJ IVP ONE (21:30)
[2021-03-29 21:32] LABS: ALBUMIN 2.6 g/dL (3.5-5.0); BILIRUBIN,TOTAL 0.8 mg/dL (0.2-1.0); POTASSIUM 4.2 mmol/L (3.5-5.1); TOTAL PROTEIN, SERUM 7.9 g/dL (6.0-8.3)
[2021-03-29 21:44] LABS: CRP QUANTITATIVE 225.3 mg/L (0.00-9.0)
[2021-03-29] MEDS ORDERED: METO-391 PO (22:36)
[2021-03-29] MEDS ORDERED: LISI10TA24 PO (22:36)
[2021-03-29] MEDS ORDERED: ACETAMINOPHEN WITH CODEINE 1 TAB TAB PO PRN (23:30)
[2021-03-29] MEDS ORDERED: VANCOMYCIN PROTOCOL PER PHARMACY IV PRN (23:30)
[2021-03-29] MEDS ORDERED: MAG/ALUM/SIMETH 30 ML UDCUP PO PRN (23:30)
[2021-03-29] MEDS ORDERED: ACETAMINOPHEN 325 MG TAB PO PRN (23:30)
[2021-03-29] MEDS ORDERED: GUAIFENESIN-DM 200/20 MG 10 ML PO PRN (23:30)
[2021-03-29] MEDS ORDERED: ALBUMIN (HUMAN) 5% 250 ML IV SCH (23:30)
[2021-03-29] MEDS ORDERED: LACTULOSE 20 GM/30 ML UDCUP PO PRN (23:30)
[2021-03-29] MEDS ORDERED: 0.9%NACL 1000ML 1,000 ML IV SCH (23:30)
[2021-03-30] VITALS (15 sets, daily range): BP systolic 128–155; BP diastolic 42–66
[2021-03-30] MEDS ORDERED: VANCOMYCIN 1G/250ML KIT 250 ML IV ONE (00:10)
[2021-03-30] MEDS: MEROPENEM 500 MG VIAL IV SCH ×2 (02:52→23:06)
[2021-03-30 06:34] LABS: BASOPHILS % (AUTO) 0.5 % (0.0-5.0); EOSINOPHILS % (AUTO) 0.1 % (0.0-8.0); HEMATOCRIT 32.1 % (42-54); LYMPHOCYTES % (AUTO) 1.1 % (21.0-51.0); MEAN CORPUSCULAR HEMOGLOBIN 26.1 pg (27.0-33.0); MEAN CORPUSCULAR HGB CONC 31.5 g/dL (32.0-36.0); MEAN CORPUSCULAR VOLUME 82.9 fL (79-99); MONOCYTES % (AUTO) 3.3 % (3.0-13.0); NEUTROPHILS % (AUTO) 92.8 % (40.0-77.0); PLATELET COUNT (AUTO) 294 K/uL (130-400); RED BLOOD CELL COUNT(AUTO) 3.87 MIL/uL (4.50-6.20); RED CELL DISTRIBUTION WIDTH 16.7 % (11.0-15.5); WHITE BLOOD COUNT (AUTO) 27.9 K/uL (4.8-10.8)
[2021-03-30 06:55] LABS: INR 1.24 (0.85-1.15); PROTHROMBIN TIME 13.3 SEC (9.6-11.6)
[2021-03-30 06:56] LABS: PARTIAL THROMBOPLASTIN TIME 29.2 SEC (26.3-35.5)
[2021-03-30] MEDS ORDERED: COMPOUND IV REFRIGERATED 1 EACH IVSOLN MISC PRN (07:00)
[2021-03-30 07:11] LABS: ALBUMIN 2.4 g/dL (3.5-5.0); BILIRUBIN,TOTAL 0.7 mg/dL (0.2-1.0); POTASSIUM 4.7 mmol/L (3.5-5.1); TOTAL PROTEIN, SERUM 6.7 g/dL (6.0-8.3)
[2021-03-30 07:12] LABS: CREATININE 9.4 mg/dL (0.5-1.5)
[2021-03-30] MEDS: INSULIN HUMULIN R 100 UNIT/ML 3ML SQ SCH ×4 (07:30→20:49)
[2021-03-30] MEDS ORDERED: RENAL DOSE IV PRN (10:30)
[2021-03-30] MEDS: ALBUMIN (HUMAN) 25% 200 ML IV SCH (10:30)
[2021-03-30 10:58] LABS: INR 1.28 (0.85-1.15); PROTHROMBIN TIME 13.6 SEC (9.6-11.6)
[2021-03-30] MEDS ORDERED: 0.9%NACL 1000ML 1,000 ML IV PRN (11:00)
[2021-03-30] MEDS: ACETAMINOPHEN 325 MG TAB PO PRN (17:45)
[2021-03-31 04:00] VITALS: BP 109/42
[2021-03-31 05:15] LABS: HEMATOCRIT 30.2 % (42-54); MEAN CORPUSCULAR HEMOGLOBIN 25.6 pg (27.0-33.0); MEAN CORPUSCULAR HGB CONC 31.1 g/dL (32.0-36.0); MEAN CORPUSCULAR VOLUME 82.3 fL (79-99); RED BLOOD CELL COUNT(AUTO) 3.67 MIL/uL (4.50-6.20); RED CELL DISTRIBUTION WIDTH 16.7 % (11.0-15.5); WHITE BLOOD COUNT (AUTO) 18.6 K/uL (4.8-10.8)
[2021-03-31 05:23] LABS: CREATININE 7.3 mg/dL (0.5-1.5); POTASSIUM 4.4 mmol/L (3.5-5.1)
[2021-03-31] MEDS: ACETAMINOPHEN 325 MG TAB PO PRN (06:26)
[2021-03-31] MEDS ORDERED: ONDANSETRON 4MG INJ IVP PRN (07:00)
[2021-03-31] MEDS: INSULIN HUMULIN R 100 UNIT/ML 3ML SQ SCH ×4 (07:30→21:00)
[2021-03-31 08:07] VITALS: BP 144/64
[2021-03-31 08:14] LABS: HEPATITIS Bs ANTIGEN SCREEN P Negative (Negative)
[2021-03-31] MEDS: ALBUMIN (HUMAN) 25% 200 ML IV SCH (10:30)
[2021-03-31 10:52] VITALS: BP 110/56
[2021-03-31 16:00] VITALS: BP 112/68
[2021-03-31 19:39] VITALS: BP 131/60
[2021-03-31] MEDS: MEROPENEM 500 MG VIAL IV SCH (22:56)
[2021-03-31 23:42] VITALS: BP 107/51
[2021-04-01] VITALS (20 sets, daily range): BP systolic 95–129; BP diastolic 41–65
[2021-04-01] MEDS: INSULIN HUMULIN R 100 UNIT/ML 3ML SQ SCH ×4 (07:30→20:55)
[2021-04-01 08:36] LABS: HEMATOCRIT 32.4 % (42-54); MEAN CORPUSCULAR HEMOGLOBIN 25.7 pg (27.0-33.0); MEAN CORPUSCULAR HGB CONC 31.5 g/dL (32.0-36.0); MEAN CORPUSCULAR VOLUME 81.6 fL (79-99); PLATELET COUNT (AUTO) 279 K/uL (130-400); RED BLOOD CELL COUNT(AUTO) 3.97 MIL/uL (4.50-6.20); RED CELL DISTRIBUTION WIDTH 16.6 % (11.0-15.5); WHITE BLOOD COUNT (AUTO) 24.9 K/uL (4.8-10.8)
[2021-04-01] MEDS: ALBUMIN (HUMAN) 25% 200 ML IV SCH (08:42)
[2021-04-01 08:46] LABS: POTASSIUM 4.4 mmol/L (3.5-5.1)
[2021-04-01 09:26] LABS: EOSINOPHILS % (MANUAL) 1 % (1-6); LYMPHOCYTES % (MANUAL) 5 % (22-44); MAN.DIFF COMMENT-IMPRESSION MANUAL DIFFERENTIAL; MONOCYTES % (MANUAL) 2 % (2-9); PLATELET MORPHOLOGY COMMENT ADEQUATE; SEGMENTED NEUTROPHILS % 92 % (40-70)
[2021-04-01] MEDS: MEROPENEM 500 MG VIAL IV SCH (23:22)
[2021-04-02] VITALS (11 sets, daily range): BP systolic 120–156; BP diastolic 48–78
[2021-04-02] MEDS: INSULIN HUMULIN R 100 UNIT/ML 3ML SQ SCH ×4 (05:50→20:40)
[2021-04-02] MEDS: ALBUMIN (HUMAN) 25% 200 ML IV SCH (10:30)
[2021-04-02] MEDS ORDERED: FENTANYL CITRATE PF 50 MCG/1 ML 2ML VIAL ONE (14:08)
[2021-04-02 17:05] LABS: SPECIMENTYPE,BODY FLUID ASPIRATE
[2021-04-02 17:06] LABS: APPEARANCE BODY FLUID BLOODY (CLEAR); BODY FLUID WBC 7575 /cu. mm.; COLOR,BODY FLUID BROWN (LT YELLOW); TOTAL VOLUME,BODY FLUID 8 mL
[2021-04-02 17:07] LABS: BODY FLUID RBC 42000 /cu. mm.
[2021-04-02 17:16] LABS: BF LYMPHOCYTE 4 %
[2021-04-02] MEDS: MEROPENEM 500 MG VIAL IV SCH (23:01)
[2021-04-03] VITALS (22 sets, daily range): BP systolic 118–145; BP diastolic 57–77
[2021-04-03 05:14] LABS: HEMATOCRIT 32.9 % (42-54); MEAN CORPUSCULAR HEMOGLOBIN 25.2 pg (27.0-33.0); MEAN CORPUSCULAR HGB CONC 30.1 g/dL (32.0-36.0); MEAN CORPUSCULAR VOLUME 83.7 fL (79-99); RED BLOOD CELL COUNT(AUTO) 3.93 MIL/uL (4.50-6.20); RED CELL DISTRIBUTION WIDTH 16.4 % (11.0-15.5); WHITE BLOOD COUNT (AUTO) 8.3 K/uL (4.8-10.8)
[2021-04-03] MEDS: INSULIN HUMULIN R 100 UNIT/ML 3ML SQ SCH ×4 (05:32→21:00)
[2021-04-03 06:12] LABS: CREATININE 8.6 mg/dL (0.5-1.5)
[2021-04-03] MEDS: ALBUMIN (HUMAN) 25% 200 ML IV SCH (10:04)
[2021-04-03] MEDS: HEPARIN 5,000 UNIT VIAL SQ SCH (13:49)
[2021-04-04] MEDS: MEROPENEM 500 MG VIAL IV SCH ×2 (00:29→23:27)
[2021-04-04] MEDS: HEPARIN 5,000 UNIT VIAL SQ SCH ×2 (01:33→13:19)
[2021-04-04 04:05] VITALS: BP 126/67
[2021-04-04 05:23] LABS: HEMATOCRIT 32.2 % (42-54); MEAN CORPUSCULAR HEMOGLOBIN 25.4 pg (27.0-33.0); MEAN CORPUSCULAR HGB CONC 30.4 g/dL (32.0-36.0); MEAN CORPUSCULAR VOLUME 83.4 fL (79-99); RED BLOOD CELL COUNT(AUTO) 3.86 MIL/uL (4.50-6.20); RED CELL DISTRIBUTION WIDTH 16.4 % (11.0-15.5)
[2021-04-04 05:32] LABS: CREATININE 6.7 mg/dL (0.5-1.5); POTASSIUM 4.2 mmol/L (3.5-5.1)
[2021-04-04] MEDS: INSULIN HUMULIN R 100 UNIT/ML 3ML SQ SCH ×4 (06:31→20:34)
[2021-04-04 08:00] VITALS: BP 132/67
[2021-04-04] MEDS: ALBUMIN (HUMAN) 25% 200 ML IV SCH (10:30)
[2021-04-04 12:01] VITALS: BP 131/63
[2021-04-04 16:00] VITALS: BP 125/59
[2021-04-04 19:56] VITALS: BP 127/62
[2021-04-04 23:52] VITALS: BP 126/60
[2021-04-05] MEDS: HEPARIN 5,000 UNIT VIAL SQ SCH ×2 (01:25→12:58)
[2021-04-05 03:48] VITALS: BP 138/75
[2021-04-05 04:31] LABS: HEMATOCRIT 33.2 % (42-54); MEAN CORPUSCULAR HEMOGLOBIN 25.4 pg (27.0-33.0); MEAN CORPUSCULAR HGB CONC 30.7 g/dL (32.0-36.0); MEAN CORPUSCULAR VOLUME 82.6 fL (79-99); RED BLOOD CELL COUNT(AUTO) 4.02 MIL/uL (4.50-6.20); RED CELL DISTRIBUTION WIDTH 16.3 % (11.0-15.5); WHITE BLOOD COUNT (AUTO) 6.2 K/uL (4.8-10.8)
[2021-04-05 05:13] LABS: POTASSIUM 4.6 mmol/L (3.5-5.1)
[2021-04-05 05:19] LABS: CREATININE 7.9 mg/dL (0.5-1.5)
[2021-04-05] MEDS: INSULIN HUMULIN R 100 UNIT/ML 3ML SQ SCH ×3 (06:15→16:30)
[2021-04-05 07:35] VITALS: BP 134/61
[2021-04-05] MEDS: ALBUMIN (HUMAN) 25% 200 ML IV SCH (10:30)
[2021-04-05 11:40] VITALS: BP 121/55
[2021-04-05 15:45] VITALS: BP 141/73
[2021-04-05] MEDS ORDERED: CIPR750T17 PO (16:52)
[2021-04-05 19:30] VITALS: BP 169/90
[2021-04-05] MEDS ORDERED: MORPHINE 2 MG SYG ONE (19:52)
[2021-04-05] MEDS ORDERED: KETOROLAC 30MG VIAL (30MG/ML) IV ONE (20:00)
[2021-04-06] MEDS ORDERED: VANCOMYCIN 1.25GM/NS 250ML IVPB SCH ×2 (09:00)
== END 2021-04-05 21:00 | disposition home or self-care (01) | DRG 871 ==
LOC: EDH 20:22 → EDHIP 23:20 → OBSVTOIN 23:20 → 4CH 03-30 23:02
PROVIDERS: ADMIT Internal Medicine; ATTEND Internal Medicine
PROC: 5A1D70Z Performance of Urinary Filtration, Intermittent, Less than 6 Hours Per Day (ICD-10-PCS; 2021-03-30)
PROC: 5A1D70Z Performance of Urinary Filtration, Intermittent, Less than 6 Hours Per Day (ICD-10-PCS; 2021-04-01)
PROC: 0H97X0Z Drainage of Abdomen Skin with Drainage Device, External Approach (ICD-10-PCS; principal; 2021-04-02)
PROC: 5A1D70Z Performance of Urinary Filtration, Intermittent, Less than 6 Hours Per Day (ICD-10-PCS; 2021-04-03)
DX: A41.52 Sepsis due to Pseudomonas (principal); N18.6 End stage renal disease; K65.1 Peritoneal abscess; K65.0 Generalized (acute) peritonitis; I42.9 Cardiomyopathy, unspecified; I13.2 Hypertensive heart and chronic kidney disease with heart failure and with stage 5 chronic kidney disease, or end stage renal disease; E87.1 Hypo-osmolality and hyponatremia; R18.8 Other ascites; I50.32 Chronic diastolic (congestive) heart failure; E11.22 Type 2 diabetes mellitus with diabetic chronic kidney disease; K74.60 Unspecified cirrhosis of liver; D63.1 Anemia in chronic kidney disease; Z20.822 Contact with and (suspected) exposure to COVID-19; M19.90 Unspecified osteoarthritis, unspecified site; B96.89 Other specified bacterial agents as the cause of diseases classified elsewhere; E78.5 Hyperlipidemia, unspecified; G40.909 Epilepsy, unspecified, not intractable, without status epilepticus; H35.30 Unspecified macular degeneration; H54.61 Unqualified visual loss, right eye, normal vision left eye; I25.10 Atherosclerotic heart disease of native coronary artery without angina pectoris; I27.20 Pulmonary hypertension, unspecified; I34.0 Nonrheumatic mitral (valve) insufficiency; J44.9 Chronic obstructive pulmonary disease, unspecified; N28.1 Cyst of kidney, acquired; N40.0 Benign prostatic hyperplasia without lower urinary tract symptoms; Z99.2 Dependence on renal dialysis; Z79.02 Long term (current) use of antithrombotics/antiplatelets; Z79.899 Other long term (current) drug therapy; Z87.19 Personal history of other diseases of the digestive system; Z87.891 Personal history of nicotine dependence; Z86.73 Personal history of transient ischemic attack (TIA), and cerebral infarction without residual deficits
CPT/HCPCS: 10030; 36415; 71045; 74176; 74177; 76705; 80048; 80053; 80202; 82040; 82105; 82550; 82948; 83605; 83874; 84145; 84484; 85025; 85027; 85378; 85610; 85730; 86140; 86704; 86706; 87040; 87071; 87077; 87186; 87205; 87340; 87635; 87804; 87880; 89051; 90935; 93005; 93306; 93356; C9803; G0378; J1644; J1885; J2185; J2405; J3010; J3370; J7050; P9046

== ENCOUNTER → 2022-05-02 | Outpatient (CLI) | payer MEDICARE ==
[~2022-05-02] MED LIST changes: +CIPR750T17 PO; +LISI10TA24 PO; +METO-391 PO; -VANCOMYCIN 1G/250ML KIT 250 ML IV ONE
[2022-05-02 16:25] LABS: BASOPHILS % (AUTO) 0.5 % (0.0-5.0); EOSINOPHILS % (AUTO) 0.7 % (0.0-8.0); HEMATOCRIT 34.8 % (42-54); LYMPHOCYTES % (AUTO) 5.6 % (21.0-51.0); MEAN CORPUSCULAR HGB CONC 29.9 g/dL (32.0-36.0); MEAN CORPUSCULAR VOLUME 93.8 fL (79-99); MONOCYTES % (AUTO) 6.3 % (3.0-13.0); NEUTROPHILS % (AUTO) 86.4 % (40.0-77.0); PLATELET COUNT (AUTO) 445 K/uL (130-400); RED BLOOD CELL COUNT(AUTO) 3.71 MIL/uL (4.50-6.20); RED CELL DISTRIBUTION WIDTH 14.6 % (11.0-15.5); WHITE BLOOD COUNT (AUTO) 10.9 K/uL (4.8-10.8)
[2022-05-02 16:29] LABS: ALBUMIN 2.4 g/dL (3.5-5.0); CREATININE 7.1 mg/dL (0.5-1.5); PHOSPHORUS 5.1 mg/dL (2.5-4.9); POTASSIUM 4.8 mmol/L (3.5-5.1); TOTAL PROTEIN, SERUM 8.4 g/dL (6.0-8.3)
== END | disposition home or self-care (01) ==
LOC: LAB 13:11
PROVIDERS: ATTEND Internal Medicine Cardiovascular Disease
DX: I10 Essential (primary) hypertension (principal)
CPT/HCPCS: 36415; 80053; 83735; 84100; 85025

== ENCOUNTER → 2023-02-02 | Outpatient (CLI) | payer MEDICARE | END | disposition home or self-care (01) | LOC: SHCH 10:46 | PROVIDERS: ATTEND Internal Medicine Cardiovascular Disease | DX: I50.22 Chronic systolic (congestive) heart failure (principal) | CPT/HCPCS: 93306 ==

== ENCOUNTER 2023-09-12 22:26 | Emergency (ER) | payer MEDICARE, OTHER ==
[2023-09-12 23:59] LABS: BASOPHILS # (AUTO) 0.04 K/uL (0.00-0.20); BASOPHILS % (AUTO) 0.7 % (0.0-5.0); EOSINOPHILS # (AUTO) 0.11 K/uL (0.00-0.70); HEMATOCRIT 33.6 % (42-54); IMMATURE GRANULOCYTE ABSOLUTE 0.02 K/uL (0-1); LYMPHOCYTES # (AUTO) 0.8 K/uL (1.0-4.8); LYMPHOCYTES % (AUTO) 13.3 % (21.0-51.0); MEAN CORPUSCULAR HEMOGLOBIN 30.7 pg (27.0-33.0); MEAN CORPUSCULAR HGB CONC 32.4 g/dL (32.0-36.0); MEAN CORPUSCULAR VOLUME 94.6 fL (79-99); MONOCYTES # (AUTO) 0.5 K/uL (0.1-1.0); MONOCYTES % (AUTO) 8.2 % (3.0-13.0); NEUTROPHILS # (AUTO) 4.3 K/uL (1.8-7.7); NEUTROPHILS % (AUTO) 75.4 % (40.0-77.0); PLATELET COUNT (AUTO) 116 K/uL (130-400); RED BLOOD CELL COUNT(AUTO) 3.55 MIL/uL (4.50-6.20); WHITE BLOOD COUNT (AUTO) 5.6 K/uL (4.8-10.8)
[2023-09-13 00:12] LABS: ALBUMIN 3.9 g/dL (3.5-5.0); BILIRUBIN,TOTAL 0.5 mg/dL (0.2-1.0); POTASSIUM 5.6 mmol/L (3.5-5.1); TOTAL PROTEIN, SERUM 8.6 g/dL (6.0-8.3)
[2023-09-13 00:17] LABS: CREATININE 8.1 mg/dL (0.5-1.3)
[2023-09-13] MEDS: ACETAMINOPHEN 325 MG TAB PO ONE (00:19)
[2023-09-13] MEDS: NIFEDIPINE 10 MG CAP PO ONE ×2 (00:50→02:43)
[2023-09-13] MEDS: HYDRALAZINE 20MG/ML VIAL IV ONE (03:47)
[2023-09-13 04:28] VITALS: BP 143/60; PULSE 62; RESP 18; O2SAT 98
== END 2023-09-13 04:50 | disposition home or self-care (01) ==
LOC: EDH 22:26
DX: S62.398A Other fracture of other metacarpal bone, initial encounter for closed fracture (principal); S80.212A Abrasion, left knee, initial encounter; S80.211A Abrasion, right knee, initial encounter; M79.651 Pain in right thigh; I12.9 Hypertensive chronic kidney disease with stage 1 through stage 4 chronic kidney disease, or unspecified chronic kidney disease; E11.22 Type 2 diabetes mellitus with diabetic chronic kidney disease; N18.9 Chronic kidney disease, unspecified; E78.00 Pure hypercholesterolemia, unspecified; Z79.899 Other long term (current) drug therapy; Z98.890 Other specified postprocedural states; V89.2XXA Person injured in unspecified motor-vehicle accident, traffic, initial encounter; Y93.I9 Activity, other involving external motion; Y92.488 Other paved roadways as the place of occurrence of the external cause; Y99.8 Other external cause status
CPT/HCPCS: 73562; 99285; 80053; 85025; 36415; 71045; 73070; 73090; 73552; 72170; 73564; 73130; 96374; J0360; 29105